=== PATIENT | female | born 1965 | race Caucasian/White ===

== ENCOUNTER 2016-11-14 23:07 | Emergency (ER) | payer MEDICAID ==
[~2016-11-14] VITALS: Ht 167.6 cm; Wt 66.0 kg
[~2016-11-14 23:07] MED LIST: AMLO1CAP6 PO; ATOR40TA70; GLIP10TA72; METF500T4; PIOG15TA13 PO
[2016-11-15 01:55] VITALS: BP 134/80
== END 2016-11-15 02:18 | disposition home or self-care (01) ==
LOC: ER 23:08
DX: S80.01XA Contusion of right knee, initial encounter (principal); I10 Essential (primary) hypertension; E11.9 Type 2 diabetes mellitus without complications; Z88.0 Allergy status to penicillin; Z98.890 Other specified postprocedural states; W18.2XXA Fall in (into) shower or empty bathtub, initial encounter; Y93.89 Activity, other specified; Y92.012 Bathroom of single-family (private) house as the place of occurrence of the external cause
CPT/HCPCS: 73562; 99284; Z7610

== ENCOUNTER 2016-12-03 16:12 | Emergency (ER) | payer MEDICAID ==
[~2016-12-03] VITALS: Ht 160 cm; Wt 76.0 kg
[~2016-12-03 16:12] MED LIST changes: -PIOG15TA13 PO; +PIOG15TA6 PO
[2016-12-03] MEDS ORDERED: ACETAMINOPHEN 325MG TABLET PO ONE (20:00)
[2016-12-03 21:30] VITALS: BP 129/79
== END 2016-12-03 22:10 | disposition home or self-care (01) ==
LOC: ER 20:54
DX: S83.91XA Sprain of unspecified site of right knee, initial encounter (principal); E11.9 Type 2 diabetes mellitus without complications; I10 Essential (primary) hypertension; Z88.0 Allergy status to penicillin
CPT/HCPCS: 73562; 99284

== ENCOUNTER 2019-02-09 10:20 | Emergency (ER) | payer MEDICAID ==
[~2019-02-09] VITALS: Ht 162.6 cm; Wt 69.0 kg
[~2019-02-09 10:20] MED LIST changes: +GLIP10TA3; -GLIP10TA72; +METF-414; -METF500T4
[2019-02-09] MEDS ORDERED: ONDANSETRON HCL 4MG/2ML INJ IV STA (11:16)
[2019-02-09] MEDS ORDERED: KETOROLAC 30MG/ML VIAL IV STA (11:16)
[2019-02-09] MEDS ORDERED: SODIUM CHLORIDE 0.9% 1,000 ML IV ONE (11:16)
[2019-02-09 11:56] LABS: BASOPHILS % 0.4 % (0.0-2.0); HEMATOCRIT. 37.3 % (36.0-48.0); HEMOGLOBIN. 12.4 g/dL (12.0-16.0); LYMPHOCYTES % 16.3 % (20.0-50.0); MEAN CORPUSCULAR HEMOGLOBIN 27.1 pg (28.0-32.0); MEAN CORPUSCULAR VOLUME 81.6 fL (81.0-99.0); MEAN PLATELET VOLUME 7.9 fl (7.4-10.4); MONOCYTES % 6.3 % (2.0-8.0); PLATELET 335 x1000/uL (130-400); RED BLOOD CELL COUNT 4.57 mill/uL (4.2-5.4); RED CELL DISTRIBUTION WIDTH 14.8 % (11.6-14.6)
[2019-02-09 12:03] LABS: CHLORIDE 101 mEq/L (98-107)
[2019-02-09 12:13] LABS: PROTHROMBIN TIME 10.1 sec (9.6-11.0)
[2019-02-09] MEDS ORDERED: POTASSIUM CHLORIDE 20MEQ TABLET SR PO ONE (13:00)
[2019-02-09 14:40] VITALS: BP 127/66
== END 2019-02-09 14:30 | disposition home or self-care (01) ==
LOC: ER 10:20
DX: R10.11 Right upper quadrant pain (principal); E11.9 Type 2 diabetes mellitus without complications; I10 Essential (primary) hypertension; Z98.890 Other specified postprocedural states; Z88.0 Allergy status to penicillin; Z79.899 Other long term (current) drug therapy
CPT/HCPCS: 36415; 76705; 80053; 83690; 85025; 85610; 96374; 96375; 99284; J1885; J2405; J7030

== ENCOUNTER 2021-02-07 20:22 | Emergency (ER) | payer MEDICAID ==
[~2021-02-07] VITALS: Ht 154.9 cm; Wt 73.7 kg
[2021-02-07] MEDS ORDERED: DIPHENHYDRAMINE 50MG/ML VIAL IV ONE (21:30)
[2021-02-07] MEDS ORDERED: METHYLPREDNISOLONE SOD SUCC 125 MG/2 ML VIAL IV ONE (21:30)
[2021-02-07] MEDS ORDERED: EPINEPHRINE 1:1000 1 MG/ML AMP INJ ONE (21:30)
[2021-02-07] MEDS ORDERED: B50 MT (22:56)
[2021-02-07] MEDS ORDERED: P50 MT (22:56)
[2021-02-07] MEDS ORDERED: EPIN0.3P3 IM (22:56)
[2021-02-07] MEDS ORDERED: SODIUM CHLORIDE 0.9% 1,000 ML IV ONE (23:45)
[2021-02-08 01:00] VITALS: BP 139/75
== END 2021-02-08 01:23 | disposition home or self-care (01) ==
LOC: ER 20:22
DX: J02.9 Acute pharyngitis, unspecified (principal); E11.9 Type 2 diabetes mellitus without complications; I10 Essential (primary) hypertension; Z98.890 Other specified postprocedural states; Z88.0 Allergy status to penicillin; Z79.899 Other long term (current) drug therapy
CPT/HCPCS: 96361; 96374; 96375; 99285; J1200; J2930; J3490; J7030

== ENCOUNTER 2022-08-07 12:41 | Emergency (ER) | payer MEDICAID ==
[~2022-08-07] VITALS: Ht 162.6 cm; Wt 80.0 kg
[~2022-08-07 12:41] MED LIST changes: +B50 MT; +EPIN0.3P3 IM; +P50 MT
[2022-08-07] MEDS ORDERED: MORPHINE SULFATE 4 MG/ML CPJ (NOT FOR IM USE) IV STA (14:36)
[2022-08-07] MEDS ORDERED: SODIUM CHLORIDE 0.9% 1,000 ML IV ONE (14:45)
[2022-08-07 15:13] LABS: BASOPHILS % 0.8 % (0.0-2.0); EOSINOPHILS % 0.4 % (0.0-5.0); HEMATOCRIT. 41.3 % (36.0-48.0); HEMOGLOBIN. 13.7 g/dL (12.0-16.0); LYMPHOCYTES % 17.7 % (20.0-50.0); MEAN CORPUSCULAR HEMOGLOBIN 27.5 pg (28.0-32.0); MEAN CORPUSCULAR VOLUME 83.1 fL (81.0-99.0); MEAN PLATELET VOLUME 7.8 fl (7.4-10.4); MONOCYTES % 4.9 % (2.0-8.0); NEUTROPHILS % 76.2 % (40.0-76.0); PLATELET 355 x1000/uL (130-400); RED BLOOD CELL COUNT 4.96 mill/uL (4.2-5.4); RED CELL DISTRIBUTION WIDTH 15.5 % (11.6-14.6)
[2022-08-07 15:21] LABS: CLARITY URINE CLEAR (CLEAR); COLOR URINE YELLOW (YELLOW); KETONES URINE 1+ (NEGATIVE); LEUKOCYTE ESTERASE URINE TRACE (NEGATIVE); NITRITE URINE NEGATIVE (NEGATIVE); OCCULT BLOOD URINE NEGATIVE (NEGATIVE); PROTEIN URINE NEGATIVE (NEGATIVE); PROTHROMBIN TIME 10.5 sec (9.6-11.0); SPECIFIC GRAVITY URINE 1.012 (1.005-1.030); UROBILINOGEN URINE 0.2 E.U./dL (0.2-1.0)
[2022-08-07 15:23] LABS: CHLORIDE 102 mEq/L (98-107)
[2022-08-07] MEDS ORDERED: VISCOUS LIDOCAINE 2% 15 ML UDC PO STA (15:41)
[2022-08-07] MEDS ORDERED: MAGNESIUM/ALUMINUM HYDROXIDE/SIMETHICONE 30ML UDC PO STA (15:41)
[2022-08-07] MEDS ORDERED: FAMOTIDINE 20MG/2ML VIAL IV ONE (15:45)
[2022-08-07] MEDS ORDERED: ACET-2708 MT (18:08)
[2022-08-07] MEDS ORDERED: KETOROLAC 30MG/ML VIAL IM ONE (18:15)
[2022-08-07 18:41] VITALS: BP 144/93
== END 2022-08-07 19:28 | disposition home or self-care (01) ==
LOC: ER 13:23
DX: R10.11 Right upper quadrant pain (principal); E11.9 Type 2 diabetes mellitus without complications; I10 Essential (primary) hypertension; Z79.84 Long term (current) use of oral hypoglycemic drugs; Z98.890 Other specified postprocedural states; Z96.659 Presence of unspecified artificial knee joint; Z88.0 Allergy status to penicillin
CPT/HCPCS: 36415; 71045; 74176; 76705; 80053; 81003; 81025; 83690; 84484; 85025; 85610; 93005; 96361; 96372; 96374; 96375; 99285; J1885; J2270; J3490; J7030